=== PATIENT | female | born 1970 | race African-American/Black ===

== ENCOUNTER 2016-07-22 12:29 | Emergency (ER) | payer MEDICARE, OTHER ==
[~2016-07-22] VITALS: Ht 160 cm; Wt 113.6 kg
[~2016-07-22 12:29] MED LIST: ACET250T3 PO; BETH25TA PO; BUME1TAB PO; LEVEMIR SQ; LISI-360 PO; OMEP20TA39 PO; REME30TA PO; ULTR50TA PO
[2016-07-22 12:31] VITALS: BP 159/104; PULSE 106; RESP 17; TEMP 97.9; O2SAT 100
--- NOTE | 2016-07-22 15:51 | PD ---
HPI Chief Complaint: Pain: Acute or Chronic Time Seen by Provider: 15:51 Travel History International Travel<30 days: No Contact w/Intl Traveler<30days: No Traveled to known affect area: No History of Present Illness HPI 46-year-old female with PMH of DM T2, CIDP (chronic inflammatory demyelination polyneuropathy) presents to the ED for evaluation of 2 day history of right groin pain. Onset approximately 12 hours after losing her balance, tripping, catching herself with her right leg. She did not fall to the ground, hit her head or lose consciousness. She endorses minimal pain at rest, 10/10 with hip/ knee flexion of the leg. She endorses a "feeling like my leg is asleep" and states that the left side of her vulva and left foot feels cold. She denies weakness, limitations to mobility or loss of strength of the right extremity. Denies fever, chills, abdominal pain, dysuria, back pain, saddle anesthesia or incontinence. Last brain MRI was "at the end of 2014." Followed by Dr. Singh, neurology. [facility] Past Medical History Anemia: Yes Arthritis: Yes Depression: Yes Heart Rhythm Problems: No Cardiac Catheterization: No Cardiovascular Problems: No High Cholesterol: No Chest Pain: Yes Congestive Heart Failure: No Diabetes: Yes Diminished Hearing: No GERD: Yes Headaches: Yes Hypertension: No Neurologic: Yes (INCREASED ICP, CIDP-2012) Myocardial Infarction: No Ulcer: Yes ?: Not : 4 Para: 4 Tubal Ligation: Yes Past Surgical History Section: Yes (X 4) Coronary Artery Bypass Graft: No Genitourinary Surgery: Yes (URINARY DIVERTICULUM) Gynecologic Surgery: Yes ( X 4, FIBROIDS REMOVED, UTERINE ABLATION) Social History Alcohol Use: Yes (OCCASSIONAL) Tobacco Use: No Substance Use: No Allergies-Medications (Allergen,Severity, Reaction): Coded Allergies: No Known Allergies (Verified , 07/22/16) Reported Meds & Prescriptions Reported Meds & Active Scripts Active Ala-Tk Topical (Hydrocortisone (Topical)) 1% Cream 1 Applic TOPICAL TID 14 Days Tylenol (Acetaminophen) 325 Mg Tab 325 Mg PO TID Reported Metformin (Metformin HCl) 1,000 Mg Tab 1,000 Mg PO BIDPC With meals Levemir Inj (Insulin Detemir) 1,000 unit/ 10 ML Vial 54 Units SQ HS Do not mix with any other Insulin. Lisinopril 10 Mg Tab 10 Mg PO DAILY Ultram (Tramadol HCl) 50 Mg Tab 50 Mg PO Q6H PRN Review of Systems Except as stated in HPI: all other systems reviewed are Neg Physical Exam Narrative GENERAL: Well-nourished, well-developed pleasant black female in no acute distress. SKIN: Warm and dry. No bruising, edema of the right groin. HEAD: Normocephalic. EYES: No scleral icterus. No injection or drainage. NECK: Supple, trachea midline. No JVD or lymphadenopathy. CARDIOVASCULAR: Regular rate and rhythm without murmurs, gallops, or rubs. 2+ DP and radial pulses bilaterally. RESPIRATORY: Breath sounds clear and equal bilaterally. No accessory muscle use. GASTROINTESTINAL: Abdomen soft, non-tender, nondistended. Active bowel sounds. MUSCULOSKELETAL: No cyanosis, or edema. Tender to palpation in the right groin. No tenderness to palpation of the lateral aspect of the hip. The patient retains full, active range of motion of bilateral lower extremities. Flexion of the right hip and knee elicits pain in the groin. No pain elicited with abduction or abduction of the hip. 5/5 plantar flexion, dorsiflexion, knee flexion and hip flexion bilaterally. Homans sign negative bilaterally. Feet are warm and well perfused bilaterally. Lower leg reflexes absent, pt states this is chronic. Sensation intact to touch distally. Cap refill less than 2 seconds. BACK: Nontender without obvious deformity. No midline tenderness. No CVA tenderness. Data Data Last Documented VS Vital Signs Date Time Temp Pulse Resp B/P Pulse Ox O2 Delivery O2 Flow Rate FiO2 07/22/16 18:04 80 20 118/65 99 07/22/16 12:31 97.9 Orders Hip, Uni(Ap&Lat) W Ap Pelvis (07/22/16 16:04) Us Leg Venous Doppler (07/22/16 16:04) Complete Blood Count With Diff (07/22/16 16:06) Comprehensive Metabolic Panel (07/22/16 16:06) Urinalysis - C+S If Indicated (07/22/16 16:06) Iv Access Insert/Monitor (07/22/16 16:06) Morphine Inj (Morphine Inj) (07/22/16 16:15) Sodium Chlor 0.9% 1000 Ml Inj (Ns 1000 M (07/22/16 16:06) Act Partial Throm Time (Ptt) (07/22/16 16:23) Prothrombin Time / Inr (Pt) (07/22/16 16:23) Urine Culture (07/22/16 18:01) Labs Laboratory Tests Test 07/22/16 07/22/16 07/22/16 16:12 16:20 18:01 White Blood Count 13.2 TH/MM3 Red Blood Count 5.04 MIL/MM3 Hemoglobin 13.7 GM/DL Hematocrit 41.6 % Mean Corpuscular Volume 82.5 FL Mean Corpuscular Hemoglobin 27.1 PG Mean Corpuscular Hemoglobin 32.9 % Concent Red Cell Distribution Width 16.5 % Platelet Count 335 TH/MM3 Mean Platelet Volume 9.4 FL Neutrophils (%) (Auto) 47.5 % Lymphocytes (%) (Auto) 45.0 % Monocytes (%) (Auto) 5.0 % Eosinophils (%) (Auto) 1.1 % Basophils (%) (Auto) 1.4 % Neutrophils # (Auto) 6.3 TH/MM3 Lymphocytes # (Auto) 5.9 TH/MM3 Monocytes # (Auto) 0.7 TH/MM3 Eosinophils # (Auto) 0.1 TH/MM3 Basophils # (Auto) 0.2 TH/MM3 CBC Comment AUTO DIFF Differential Total Cells 100 Counted Neutrophils % (Manual) 43 % Lymphocytes % 54 % Monocytes % 3 % Neutrophils # (Manual) 5.7 TH/MM3 Nucleated Red Blood Cells 1 /100 WBC Differential Comment FINAL DIFF MANUAL Platelet Estimate NORMAL Platelet Morphology Comment NORMAL Red Cell Morphology Comment NORMAL Sodium Level 137 MEQ/L Potassium Level 4.0 MEQ/L Chloride Level 106 MEQ/L Carbon Dioxide Level 23.0 MEQ/L Anion Gap 8 MEQ/L Blood Urea Nitrogen 17 MG/DL Creatinine 1.05 MG/DL Estimat Glomerular Filtration 69 ML/MIN Rate Random Glucose 231 MG/DL Calcium Level 8.9 MG/DL Total Bilirubin 0.2 MG/DL Aspartate Amino Transf 9 U/L (AST/SGOT) Alanine Aminotransferase 20 U/L (ALT/SGPT) Alkaline Phosphatase 91 U/L Total Protein 9.2 GM/DL Albumin 3.6 GM/DL Prothrombin Time 9.8 SEC Prothromb Time International 0.9 RATIO Ratio Activated Partial 26.3 SEC Thromboplast Time Urine Color LIGHT-YELLOW Urine Turbidity HAZY Urine pH 5.5 Urine Specific [place] 1.028 Urine Protein NEG mg/dL Urine Glucose (UA) 1000 mg/dL Urine Ketones NEG mg/dL Urine Occult Blood NEG Urine Nitrite NEG Urine Bilirubin NEG Urine Urobilinogen LESS THAN 2.0 MG/DL Urine Leukocyte Esterase MOD Urine WBC 24 /hpf Urine Squamous Epithelial 3 /hpf Cells Urine Bacteria MOD /hpf Microscopic Urinalysis Comment CULTURE INDICATED MDM Medical Decision Making Medical Screen Exam Complete: Yes Emergency Medical Condition: Yes Differential Diagnosis Muscle strain versus fracture versus dislocation versus DVT versus neuropathy versus radiculopathy versus other Narrative Course 46-year-old female with PMH of DM T2, CIDP (chronic inflammatory demyelination polyneuropathy) presents to the ED for evaluation of 2 day history of right groin pain. Onset approximately 12 hours after losing her balance, tripping, catching herself with her right leg. She endorses minimal pain at rest, 10/10 with hip/ knee flexion of the leg. She endorses a "feeling like my leg is asleep" and states that the left side of her vulva and left foot feels cold. She denies weakness, limitations to mobility or loss of strength of the right extremity. Denies fever, chills, abdominal pain, dysuria, back pain, saddle anesthesia or incontinence. Last brain MRI was "at the end of 2014." Followed by Dr. Singh, neurology. Vitals reviewed. Patient is initially tachycardic but this resolves in the exam room. She is observed to walk with a normal gait. Absent reflexes in the lower extremities but this is chronic according to the patient. No focal neural deficits. Flexion and extension of the right knee and hip elicits pain. No pain with abduction or abduction. IV was established. Labs were drawn. Patient was administered 2 mg morphine. CBC: CBC 13.2. Hemoglobin 13.7. INR 0.9. CMP: Creatinine 1.05. BUN 17. Glucose 231. UA: Hazy, moderate leukocyte esterase, 24 WBCs, moderate bacteria. Culture pending. Right hip x-ray: No acute disease Ultrasound of right lower extremity: No DVT I discussed the patient, workup and plan of care with Dr. Maxwell who agrees. I feel this is muscle strain, since is easily reproducible with flexion at the hip. Could be a flare of her rheumatological disease but no red flag symptoms at this time. I advised the patient to limit heavy physical activity, prescribed Tylenol for pain, instructed the patient to follow up with Dr. Singh. We discussed reasons to return to the ED. She indicated understanding of the instructions. She is very happy to be going home. She is stable and discharged. Upon review of this patient's lab results she is found to have a urinary tract infection. I instructed the charge nurse to call the patient at home with prescription of Bactrim DS, twice a day 5 days. Diagnosis Primary Impression: Strain of muscle of right groin region Additional Impressions: Skin rash Urinary tract infection Qualified Code: N39.0 - Urinary tract infection without hematuria, site unspecified Referrals: Primary Care Physician Patient Instructions: General Instructions, Groin Strain (ED) Additional Instructions: Rest, hydrate. Rest, ice, elevation of the extremity may help to reduce pain and swelling. Return to normal, gentle activity as tolerated. No heavy lifting, strenuous exercise, running or jumping until cleared by your primary care provider. Follow-up with the primary care provider this week. Return to the ED for any urgent or emergent medical condition. Med/Other Pt SpecificInfo: Prescription(s) given Scripts Hydrocortisone (Topical) (Ala-Tk Topical)1% Cream1 Applic TOPICAL TID 14 Days Ref 0 Prov:Caren Maxwell MD 07/22/16 Acetaminophen (Tylenol)325 Mg [id number] Mg PO TID #15 TAB Ref 0 Prov:Caren Maxwell MD 07/22/16 Disposition: 01 DISCHARGE HOME Condition: Stable [place] Jul 22, 2016 15:51
[2016-07-22] MEDS ORDERED: LISI10TA3 PO (15:56)
[2016-07-22] MEDS ORDERED: METF1000 PO (15:56)
[2016-07-22] MEDS ORDERED: LEVEMIR SQ (15:56)
[2016-07-22] MEDS ORDERED: ULTR50TA5 PO (15:56)
[2016-07-22 16:00] VITALS: BP 152/94; PULSE 87; RESP 20; O2SAT 99
[2016-07-22] MEDS ORDERED: SODIUM CHLOR 0.9% 1000 ML INJ 1,000 ML IV SCH (16:06)
[2016-07-22] MEDS ORDERED: MORPHINE SULFATE 4 MG/ML INJ IV PUSH ONE (16:15)
--- NOTE | 2016-07-22 16:41 | RADRPT ---
EXAM DATE/TIME: 07/22/2016 16:23 [facility] COMPARISON: No previous studies available for comparison. INDICATIONS : Pain from hyperextension. MEDICAL HISTORY : None. SURGICAL HISTORY : None. ENCOUNTER: Initial ACUITY: 2 days PAIN SCORE: 10/10 LOCATION: Right groin. FINDINGS: Examination of the right hip was performed with AP Pelvis. The primary and secondary trabecular meka paolo of the femoral neck is intact. The hip joint is of normal width without significant sclerosis or bony hypertrophy. The acetabulum is grossly intact. CONCLUSION: No acute disease. Luis Carlos Novak MD on July 22, 2016 at 16:39 Board Certified Radiologist. This report was verified electronically.
[2016-07-22 16:43] LABS: AUTOMATED NEUTROPHIL # 6.3 TH/MM3 (1.8-7.7); BASOPHIL # 0.2 TH/MM3 (0-0.2); BASOPHIL % 1.4 % (0.0-2.0); EOSINOPHIL # 0.1 TH/MM3 (0-0.4); EOSINOPHIL % 1.1 % (0.0-4.0); HEMATOCRIT 41.6 % (35.0-46.0); LYMPHOCYTE # 5.9 TH/MM3 (1.0-4.8); MEAN CELL VOLUME 82.5 FL (80.0-100.0); MEAN CORPUSCULAR HEMOGLOBIN 27.1 PG (27.0-34.0); MEAN CORPUSCULAR HGB CONC 32.9 % (32.0-36.0); NEUT % 47.5 % (16.0-70.0); PLATELET COUNT 335 TH/MM3 (150-450); RED BLOOD COUNT 5.04 MIL/MM3 (4.00-5.30); RED CELL DISTRIBUTION WIDTH 16.5 % (11.6-17.2); WHITE BLOOD COUNT 13.2 TH/MM3 (4.0-11.0)
[2016-07-22 16:45] LABS: HEMO FLAGS AUTO DIFF
[2016-07-22 16:46] LABS: ANION GAP 8 MEQ/L (5-15); AST (GOT) 9 U/L (15-37); BLOOD UREA NITROGEN 17 MG/DL (7-18); CHLORIDE 106 MEQ/L (98-107); GLOMERULAR FILTRATION RATE 69 ML/MIN (>89); SODIUM (NA) 137 MEQ/L (136-145)
[2016-07-22 16:49] LABS: ALKALINE PHOSPHATASE 91 U/L (45-117); ALT (GPT) 20 U/L (10-53); TOTAL BILIRUBIN ADULT 0.2 MG/DL (0.2-1.0)
[2016-07-22 17:02] LABS: APTT (PATIENT) 26.3 SEC (24.3-30.1); INTERNATIONAL NORMALIZED RATIO 0.9 RATIO; PROTHROMBIN TIME - PATIENT 9.8 SEC (9.8-11.6)
--- NOTE | 2016-07-22 17:19 | RADRPT ---
EXAM DATE/TIME: 07/22/2016 16:49 [facility] COMPARISON: No previous studies available for comparison. INDICATIONS : Right groin pain. MEDICAL HISTORY : Gastroesophageal reflux disease. . Increased intracranial pressure . Ulcer. Arthritis. Diabetes. Anemia. Urinary diverticulum. SURGICAL HISTORY : Tubal ligation. section. Fibroid removal. Uterine ablation. ENCOUNTER: Initial ACUITY: 2 day PAIN SCORE: 6/10 LOCATION: Right leg. TECHNIQUE: Venous ultrasound of the leg was performed from the inguinal ligament to the proximal calf. Real-time, color Doppler and spectral tracing, compression and augmentation techniques were us ed. FINDINGS: There is normal compressibility of the deep venous system from the inguinal region to the proximal ca lf. No echogenic clot is seen in the lumen of the common femoral, femoral, popliteal, and posterior tibial veins. There is a normal response of the venous system to proximal and distal augmentation an d respiration. CONCLUSION: Negative for DVT Maxime Saldivar MD FACR on July 22, 2016 at 17:17 Board Certified Radiologist. This report was verified electronically.
[2016-07-22 18:04] VITALS: BP 118/65; PULSE 80; RESP 20; O2SAT 99
[2016-07-22 18:25] LABS: CORRECTED NUCLEATED RBC 1 /100 WBC (0-0); NEUTROPHIL # MANUAL DIFF 5.7 TH/MM3 (1.8-7.7); POLYS (SEG NEUTROPHILS) 43 % (16-70); WBC DIFF SAMPLE 100
[2016-07-22] MEDS ORDERED: TYLE325T PO (18:26)
[2016-07-22] MEDS ORDERED: ALA1CRE2 TOPICAL (18:26)
[2016-07-22 18:32] LABS: PLATELET ESTIMATE SMEAR NORMAL (NORMAL); PLATELET MORPHOLOGY NORMAL (NORMAL); SCAN/DIFF FINAL DIFF MANUAL
[2016-07-22 18:37] LABS: BACTERIA, URINE MOD /hpf; BLOOD, URINE NEG (NEG); COMMENT (UR) CULTURE INDICATED; CULTURE IF INDICATED CULTURE INDICATED; GLUCOSE,URINE 1000 mg/dL (NEG); KETONE, URINE NEG (NEG); NITRITE,URINE NEG (NEG); PH, URINE 5.5 (5.0-8.5); SQUAMOUS EPITHELIAL CELL URINE 3 /hpf (0-5); URINE COLOR LIGHT-YELLOW (YELLW/STRAW)
[2016-12-05] MEDS ORDERED: ACETA500 PO (14:15)
[2016-12-05] MEDS ORDERED: BUME1TAB PO (14:15)
[2016-12-05] MEDS ORDERED: AMIT50TA3 PO (14:15)
[2016-12-05] MEDS ORDERED: LEVEMIR SQ (14:15)
[2016-12-05] MEDS ORDERED: PRAZ1CAP PO (14:15)
[2016-12-05] MEDS ORDERED: PROZ40CA PO (14:15)
== END 2016-07-22 18:40 | disposition home or self-care (01) ==
LOC: NETRI 12:29
DX: N39.0 Urinary tract infection, site not specified (principal); G61.81 Chronic inflammatory demyelinating polyneuritis; D64.9 Anemia, unspecified; E11.9 Type 2 diabetes mellitus without complications; K21.9 Gastro-esophageal reflux disease without esophagitis; R21 Rash and other nonspecific skin eruption; S39.011A Strain of muscle, fascia and tendon of abdomen, initial encounter; B96.20 Unspecified Escherichia coli [E. coli] as the cause of diseases classified elsewhere; M25.551 Pain in right hip; R20.0 Anesthesia of skin; R29.2 Abnormal reflex
CPT/HCPCS: 73502; 80053; 81001; 85007; 85027; 85610; 85730; 87077; 87086; 87186; 93971; 96374; 99284; J2270; J7030

== ENCOUNTER → 2016-12-05 | Outpatient (CLI) | payer MEDICARE, OTHER ==
[~2016-12-05] MED LIST changes: -ACET250T3 PO; +ACETA500 PO; +ALA1CRE2 TOPICAL; +AMIT50TA3 PO; -BETH25TA PO; -LISI-360 PO; +LISI10TA3 PO; +METF1000 PO; -OMEP20TA39 PO; +PRAZ1CAP PO; +PROZ40CA PO; -REME30TA PO; +TYLE325T PO; -ULTR50TA PO; +ULTR50TA5 PO
[2016-12-05 13:59] LABS: AUTOMATED NEUTROPHIL # 7.7 TH/MM3 (1.8-7.7); BASOPHIL # 0.1 TH/MM3 (0-0.2); BASOPHIL % 0.5 % (0.0-2.0); EOSINOPHIL # 0.2 TH/MM3 (0-0.4); EOSINOPHIL % 1.1 % (0.0-4.0); HEMATOCRIT 35.4 % (35.0-46.0); HEMO FLAGS DIFF FINAL; LYMPHOCYTE # 5.1 TH/MM3 (1.0-4.8); MEAN CELL VOLUME 85.4 FL (80.0-100.0); MEAN CORPUSCULAR HEMOGLOBIN 26.8 PG (27.0-34.0); MEAN CORPUSCULAR HGB CONC 31.4 % (32.0-36.0); MONO % 5.3 % (0.0-8.0); NEUT % 56.1 % (16.0-70.0); PLATELET COUNT 315 TH/MM3 (150-450); RED BLOOD COUNT 4.15 MIL/MM3 (4.00-5.30); RED CELL DISTRIBUTION WIDTH 16.7 % (11.6-17.2); WHITE BLOOD COUNT 13.8 TH/MM3 (4.0-11.0)
[2016-12-05 14:07] LABS: BACTERIA, URINE MOD /hpf; BLOOD, URINE TRACE (NEG); COMMENT (UR) CULTURE INDICATED; GLUCOSE,URINE NEG (NEG); KETONE, URINE NEG (NEG); MUCUS URINE FEW /lpf (OCC); NITRITE,URINE NEG (NEG); PH, URINE 5.5 (5.0-8.5); SQUAMOUS EPITHELIAL CELL URINE 28 /hpf (0-5); URINE COLOR YELLOW (YELLW/STRAW)
[2016-12-05 14:08] LABS: CULTURE IF INDICATED CULTURE INDICATED
--- NOTE | 2016-12-05 14:25 | RADRPT ---
EXAM DATE/TIME: 12/05/2016 14:04 [facility] COMPARISON: No previous studies available for comparison. INDICATIONS : Evaluate for pneumonia, pneumothorax or communicable disease. Pre op for partial hysterectomy 12-07-16. MEDICAL HISTORY : None. SURGICAL HISTORY : None. ENCOUNTER: Initial ACUITY: 1 day PAIN SCORE: 0/10 LOCATION: Bilateral chest FINDINGS: PA and lateral views of the chest demonstrate the lungs to be symmetrically aerated without evidence of mass, infiltrate or effusion. The cardiomediastinal contours are unremarkable. Osseous structure s are intact. CONCLUSION: No acute disease. Maxime Saldivar MD FACR on December 05, 2016 at 14:23 Board Certified Radiologist. This report was verified electronically.
[2016-12-05 14:34] LABS: ANION GAP 7 MEQ/L (5-15); BICARBONATE 25.3 MEQ/L (21.0-32.0); BLOOD UREA NITROGEN 14 MG/DL (7-18); CHLORIDE 108 MEQ/L (98-107); GLOMERULAR FILTRATION RATE 98 ML/MIN (>89); POTASSIUM 4.2 MEQ/L (3.5-5.1); SODIUM (NA) 140 MEQ/L (136-145)
[2016-12-05 14:38] LABS: BETA HCG QUANT LESS THAN 1 MIU/ML (0-5)
== END ==
LOC: CPRE 13:00
PROVIDERS: ATTEND Obstetrics & Gynecology
DX: Z01.812 Encounter for preprocedural laboratory examination (principal); Z01.811 Encounter for preprocedural respiratory examination; D25.9 Leiomyoma of uterus, unspecified; N92.0 Excessive and frequent menstruation with regular cycle; N94.6 Dysmenorrhea, unspecified
CPT/HCPCS: 36415; 71020; 80051; 81001; 82565; 82947; 84520; 84702; 85025; 86850; 86900; 86901; 87086

== ENCOUNTER 2016-12-07 10:09 | Observation (INO) | payer MEDICARE, OTHER ==
[~2016-12-07] VITALS: Ht 160 cm; Wt 120.0 kg
--- NOTE | 2016-12-07 08:14 | MH ---
cc: TONA WILLS. DATE OF ADMISSION: 12/07/2016 ADMISSION DIAGNOSIS Menorrhagia, dysmenorrhea with fibroids. HISTORY OF PRESENT ILLNESS The patient 46-year-old single black female para 4-0-0-4 with a three day history of increased menstrual flow and menstrual pain. Her Pap smear from January is normal. Her vaginal ultrasound from 09/19/2016 showed uterine fibroids. Ovaries appeared normal. She is now admitted for surgical evaluation. PAST MEDICAL HISTORY 1. Previous surgery 1988 she had myomectomy 2. urinary diverticula 3. Colonoscopy, endoscopy. 4. She had four sections last with a tubal. ILLNESSES She had adult onset diabetes was early 20s MEDICATIONS Include 1. Insulin. 2. Trulicity. 3. Prozac. 4. Diamox. 5. Bumetanide. SOCIAL HISTORY: She works with a [employer]. Single. Alcohol occasional tobacco none. Drugs none. FAMILY HISTORY: Noncontributory. PHYSICAL EXAMINATION: IN GENERAL: This is an obese black female in no distress. HEAD, EYES, EARS, NOSE, AND THROAT: exam is normal. CHEST: Chest is clear. HEART: The heart, regular rate. BREASTS: The breasts are symmetrical. ABDOMEN: The abdomen is benign. PELVIC: The pelvic examination normal external genitalia and Bartholin's, urethral, and [place]'s, os is normal, cervix normal uterus is about 14-16 weeks in size, Adnexa nonpalpable. ASSESSMENT: As above. PLAN: She is now admitted for D&C frozen section and possible laparoscopy, possible LASH procedure, possible ANT with ovarian sparing if normal. She has been cleared by her gynecology Dr. Ortiz for surgery. She is aware the risks, benefits and complications and agrees to proceed. MD ADONIS Salas/ruby /5:14 PM /8:10 AM KT
[~2016-12-07 10:09] MED LIST changes: -ALA1CRE2 TOPICAL; +BUPIVACAINE LIPOSOME PF 1.3% 20 ML VIAL ONE; -LISI10TA3 PO; -ULTR50TA5 PO
[2016-12-07] MEDS ORDERED: POVIDONE IODINE 5% (ANTISEPSIS KIT) 4 APPLICATIONS EACH NARE PRN (10:45)
[2016-12-07] MEDS ORDERED: ACETAMINOPHEN 1000 MG/100 ML VIAL IV SCH (10:45)
[2016-12-07] MEDS ORDERED: METOPROLOL TARTRATE 25 MG TAB PO PRN (10:45)
[2016-12-07] MEDS ORDERED: LACTATED RINGER'S 1000 ML IV PRN (10:45)
[2016-12-07] MEDS ORDERED: INSULIN HUMAN REGULAR 1,000 UNITS/10 ML VIAL SQ PRN (10:45)
[2016-12-07] MEDS ORDERED: CHLORHEXIDINE GLUCONATE 2 % 1 PACK (2 CLOTHS) TOPICAL PRN (10:45)
[2016-12-07] MEDS ORDERED: ceFAZolin 2 GM PREMIX 50 ML IV SCH (10:45)
[2016-12-07] MEDS ORDERED: SODIUM CHLORID 0.9% 500 ML IV PRN (10:45)
[2016-12-07 11:00] VITALS: BP 132/93; PULSE 98; RESP 20; TEMP 99.1; O2SAT 100
[2016-12-07] MEDS ORDERED: PROPOFOL 200 MG/20 ML AMP IV ONE (12:00)
[2016-12-07] MEDS ORDERED: KETOROLAC TROMETHAMINE 60 MG/2 ML (IM) VIAL IM ONE (12:00)
[2016-12-07] MEDS ORDERED: NEOSTIGMINE 3 MG/3 ML SYR IV ONE (12:00)
[2016-12-07] MEDS ORDERED: ePHEDrine/NS 25 MG/5 ML SYR IV ONE (12:00)
[2016-12-07] MEDS ORDERED: ONDANSETRON HCL 4 MG/2 ML VIAL IV PUSH ONE (12:00)
[2016-12-07] MEDS ORDERED: LACTATED RINGER'S 1000 ML INJ 1,000 ML IV ONE (12:00)
[2016-12-07] MEDS ORDERED: MIDAZOLAM HCL 2 MG/2 ML VIAL ONE (12:42)
[2016-12-07] MEDS ORDERED: FAMOTIDINE 20 MG/2 ML VIAL ONE (12:42)
[2016-12-07] MEDS ORDERED: diphenhydrAMINE HCL 25 MG CAP PO PRN (15:30)
[2016-12-07] MEDS ORDERED: SODIUM CHLORIDE 0.9% FLUSH 5 ML FLUSH FLUSH PRN (15:30)
[2016-12-07] MEDS ORDERED: ZOLPIDEM TARTRATE 5 MG TAB PO PRN (15:30)
[2016-12-07] MEDS ORDERED: HYDROmorphone HCL PF 1 MG/ML VIAL IV PRN (15:30)
[2016-12-07] MEDS ORDERED: PROMETHAZINE HCL 25 MG TAB PO PRN (15:30)
[2016-12-07] MEDS ORDERED: ONDANSETRON ODT 4 MG TAB PO PRN (15:30)
[2016-12-07] MEDS ORDERED: hydrOXYzine PAMOATE 25 MG CAP PO PRN (15:30)
[2016-12-07] MEDS ORDERED: ONDANSETRON HCL 4 MG/2 ML VIAL IV PRN (15:30)
[2016-12-07] MEDS ORDERED: DO NOT ADM ANY ANTICOAGULANT DRUGS PRN (16:07)
[2016-12-07] MEDS ORDERED: fentaNYL CITRATE 250 MCG/5 ML AMP ONE (16:18)
[2016-12-07] MEDS ORDERED: *ONDANSETRON 4 MG VIAL PERIprocedural Use ONLY ONE (16:40)
[2016-12-07] MEDS: LACTATED RINGER'S 1000 ML INJ 1,000 ML IV SCH (16:43)
--- NOTE | 2016-12-07 17:05 | PD.CONS ---
HPI Service [facility] Hospitalists Consult Requested By Dr. Palmer Reason for Consult Med management Primary Care Physician Brad Lawler MD Diagnoses: History of Present Illness Written by Dmitri Charles, acting as scribe for Dr. De Los Santos on 12/07/16 at 17:05. 46-year-old female with a past medical history of fibroids, DM, depression, pseudotumor cerebri. The patient was admitted for surgical management of menorrhagia and fibroid with Dr. Palmer. Hospitalist service was consulted for medical management. The patient is seen postoperatively. She has had some postoperative nausea and vomiting. She feels constipated this time. She states normally she usually takes Levemir 35 units every night on a sliding scale. She reports poor appetite at this time. She denies any recent illness, cough, fever, chills, dysuria.n She denies any additional complaints at this time. Review of Systems Except as stated in HPI: all other systems reviewed are Neg Past Family Social History Allergies: Coded Allergies: No Known Allergies (Verified , 12/07/16) Past Medical History Diabetes mellitus Uterine fibroids Depression Pseudotumor cerebri Denies history of hypertension Past Surgical History Urinary diverticular. Myomectomy EGD/colonoscopy 4 with a tubal ligation Uterine ablation Reported Medications Prazosin (Prazosin HCl) 1 Mg Cap 1 Mg PO HS Prozac (Fluoxetine HCl) 40 Mg Cap 40 Mg PO DAILY Levemir Inj (Insulin Detemir) 1,000 unit/ 10 ML Vial 40 Units SQ HS Do not mix with any other Insulin. Amitriptyline (Amitriptyline HCl) 50 Mg Tab 50 Mg PO HS Bumetanide 1 Mg Tab 1 Mg PO TID Diamox Sequels ER 12 HR (Acetazolamide) 500 Mg Cap 500 Mg PO DAILY Metformin (Metformin HCl) 1,000 Mg Tab 1,000 Mg PO BIDPC With meals Active Ordered Medications Current Medications Medications (Trade) Dose Ordered Sig/Ashish Route Start Time Stop Time Status Last Admin Lactated Ringer's 1,000 ml @ 30 mls/hr Q24H PRN IV 12/07/16 10:45 12/10/16 10:44 12/07/16 11:20 Sodium Chloride 500 ml @ 30 mls/hr [id number] PRN IV 12/07/16 10:45 12/10/16 10:44 (Lr 1000 ml Inj) 1,000 ml @ 125 mls/hr Q8H IV 12/07/16 15:23 12/07/16 16:43 (NS Flush) 2 ml UNSCH PRN FLUSH 12/07/16 15:30 (NS Flush) 2 ml BID FLUSH 12/07/16 21:00 (Toradol Inj) 30 mg Q6HR IVP 12/07/16 18:00 12/12/16 17:59 (Dilaudid Pf Inj) 1 mg Q4H PRN IV 12/07/16 15:30 (Benadryl) 25 mg Q6H PRN PO 12/07/16 15:30 (Zofran Odt) 4 mg Q6H PRN PO 12/07/16 15:30 (Zofran Inj) 8 mg Q8H PRN IV 12/07/16 15:30 (Phenergan) 25 mg Q6H PRN PO 12/07/16 15:30 (Colace) 100 mg Q12HR PO 12/07/16 21:00 (Ambien) 5 mg HS PRN PO 12/07/16 15:30 (Ofirmev Inj) 1,000 mg Q8H IV 12/07/16 20:00 (Roxicodone) 5 mg Q4H PRN PO 12/07/16 15:30 (Vistaril) 25 mg Q6H PRN PO 12/07/16 15:30 12/08/16 15:30 (Diamox Sequels) 500 mg DAILY PO 12/08/16 09:00 (Elavil) 50 mg HS PO 12/07/16 21:00 (Bumetanide) 1 mg TID PO 12/07/16 18:00 (Glucophage) 1,000 mg BIDPC PO 12/07/16 18:00 (Minipress) 1 mg HS PO 12/07/16 21:00 (PROzac) 40 mg DAILY PO 12/08/16 09:00 (Levemir Inj) 15 units HS SQ 12/07/16 21:00 (D50w (Vial) Inj) 50 ml UNSCH PRN IV 12/07/16 17:15 (Glucagon Inj) 1 mg UNSCH PRN OTHER 12/07/16 17:15 Miscellaneous Information ALL NURSING DEPARTME... [facility] PRN .XX 12/07/16 16:07 12/08/16 16:06 Family History Father of alcoholic cirrhosis Mother of cancer, primary unknown Social History Occasional alcohol use, denies daily use Denies any tobacco or drug use Physical Exam Vital Signs Vital Signs Date Time Temp Pulse Resp B/P Pulse Ox O2 Delivery O2 Flow Rate FiO2 12/07/16 11:00 99.1 98 20 132/93 100 Physical Exam GENERAL: Well-developed well-nourished. Morbid obese. In no acute distress. SKIN: Warm and dry. No lesions noted. HEENT: Normocephalic. Pupils equal and round. Mucous membranes pink and moist. CARDIOVASCULAR: Regular rate and rhythm. No murmur appreciated. RESPIRATORY: No accessory muscle use. Clear to auscultation. Breath sounds equal bilaterally. GASTROINTESTINAL: Abdomen soft, non-tender, nondistended. Bowel sounds x4. Postoperative abdomen. MUSCULOSKELETAL: No obvious deformities. No clubbing or cyanosis. No edema. NEUROLOGICAL: Postoperative sleepiness but answers questions appropriately. No focal neurological deficits. Moves upper and lower extremities spontaneously. Normal speech. Assessment and Plan Assessment and Plan 46-year-old female with a past medical history of fibroids, DM, depression, pseudotumor cerebri Menorrhagia with fibroids: Postoperative management including diet, pain control , activity, bowel regimen, DVT prophylaxis, per AUTO B[employer]KE TECHNICIAN, Dr. Palmer. Diabetes mellitus: Decreased intake postsurgically. Decrease Levemir to 15 units for now. Continue metformin. Monitor Accu-Cheks. SSI coverage with hypoglycemia protocol. Pseudotumor cerebri: Chronic, stable. Continue Bumex and acetazolamide. Depression: Chronic, stable. Continue home Elavil and Prozac. This note was transcribed by myrna Charles. I, Dr. Chevy De Los Santos personally performed the history, physical exam, and medical decision making; and confirmed the accuracy of the information in the transcribed note. Authenticated by Dr. Chevy De Los Santos on 12/07/16 at 17:05. Code Status Full code Discussed Condition With Patient, CHILD NUTRITION MANAGERDmitri Viera Dec 07, 2016 17:05 Chevy De Los Santos MD Dec 07, 2016 17:06
[2016-12-07] MEDS ORDERED: DEXTROSE 50% IN WATER 50 ML VIAL(D50) IV PRN (17:15)
[2016-12-07] MEDS ORDERED: GLUCAGON 1 MG/ML VIAL OTHER PRN (17:15)
[2016-12-07 17:48] LABS: HEMATOCRIT 32.1 % (35.0-46.0); REVIEW FLAG FINAL
[2016-12-07 18:00] VITALS: BP 127/61; PULSE 97; RESP 14; TEMP 97.8; O2SAT 95
[2016-12-07] MEDS: metFORMIN HCL 500 MG TAB PO SCH (18:25)
[2016-12-07] MEDS: BUMETANIDE 1 MG TAB PO SCH (18:25)
[2016-12-07] MEDS: KETOROLAC TROMETHAMINE 30 MG/ML (IVP) VIAL IVP SCH (18:26)
[2016-12-07 19:33] VITALS: O2SAT 95
[2016-12-07 20:30] VITALS: BP 132/79; PULSE 94; RESP 18; TEMP 97.8; O2SAT 98
[2016-12-07] MEDS ORDERED: PRAZOSIN HCL 1 MG CAP PO SCH (21:00)
[2016-12-07] MEDS ORDERED: INSULIN DETEMIR 100 UNITS/ML VIAL SQ SCH (21:00)
[2016-12-07] MEDS ORDERED: AMITRIPTYLINE HCL 50 MG TAB PO SCH (21:00)
[2016-12-07] MEDS: SODIUM CHLORIDE 0.9% FLUSH 5 ML FLUSH FLUSH SCH (21:00)
[2016-12-07] MEDS: INSULIN ASPART SUPPLEMENTAL SCALE SQ SCH (21:27)
[2016-12-07] MEDS: DOCUSATE SODIUM 100 MG CAP PO SCH (21:30)
[2016-12-07] MEDS: ACETAMINOPHEN 1000 MG/100 ML VIAL IV SCH (21:31)
[2016-12-08] MEDS: KETOROLAC TROMETHAMINE 30 MG/ML (IVP) VIAL IVP SCH ×3 (00:37→12:44)
[2016-12-08 01:00] VITALS: BP 108/64; PULSE 86; RESP 16; TEMP 97.8; O2SAT 97
[2016-12-08] MEDS: LACTATED RINGER'S 1000 ML INJ 1,000 ML IV SCH (02:30)
[2016-12-08 05:00] VITALS: BP 126/68; PULSE 88; RESP 16; TEMP 97.7; O2SAT 97
[2016-12-08] MEDS: ACETAMINOPHEN 1000 MG/100 ML VIAL IV SCH (05:27)
[2016-12-08] MEDS: INSULIN ASPART SUPPLEMENTAL SCALE SQ SCH ×2 (06:23→13:05)
[2016-12-08 06:47] LABS: AUTOMATED NEUTROPHIL # 8.6 TH/MM3 (1.8-7.7); BASOPHIL # 0.1 TH/MM3 (0-0.2); BASOPHIL % 0.5 % (0.0-2.0); EOSINOPHIL # 0.1 TH/MM3 (0-0.4); EOSINOPHIL % 0.6 % (0.0-4.0); HEMATOCRIT 29.1 % (35.0-46.0); HEMO FLAGS DIFF FINAL; LYMPH % 28.7 % (9.0-44.0); LYMPHOCYTE # 3.8 TH/MM3 (1.0-4.8); MEAN CELL VOLUME 83.9 FL (80.0-100.0); MEAN CORPUSCULAR HEMOGLOBIN 27.3 PG (27.0-34.0); MEAN CORPUSCULAR HGB CONC 32.5 % (32.0-36.0); MONO % 5.4 % (0.0-8.0); NEUT % 64.8 % (16.0-70.0); PLATELET COUNT 264 TH/MM3 (150-450); RED BLOOD COUNT 3.46 MIL/MM3 (4.00-5.30); RED CELL DISTRIBUTION WIDTH 16.2 % (11.6-17.2); WHITE BLOOD COUNT 13.2 TH/MM3 (4.0-11.0)
[2016-12-08 07:31] LABS: BICARBONATE 26.4 MEQ/L (21.0-32.0)
[2016-12-08 07:45] LABS: CALCIUM-PROTEIN CORRECTED 7.8 MG/DL (8.5-10.1)
[2016-12-08 08:00] VITALS: BP 132/77; PULSE 89; RESP 18; TEMP 97.5; O2SAT 99
[2016-12-08] MEDS ORDERED: acetaZOLAMIDE SEQUELS 500 MG SUSTAINED RELEASE CAP PO SCH (09:00)
[2016-12-08] MEDS ORDERED: FLUoxetine HCL 20 MG CAP PO SCH (09:00)
[2016-12-08] MEDS: metFORMIN HCL 500 MG TAB PO SCH (09:32)
[2016-12-08] MEDS: DOCUSATE SODIUM 100 MG CAP PO SCH (09:32)
[2016-12-08] MEDS: BUMETANIDE 1 MG TAB PO SCH ×2 (09:32→13:05)
[2016-12-08] MEDS: SODIUM CHLORIDE 0.9% FLUSH 5 ML FLUSH FLUSH SCH (09:33)
[2016-12-08 10:15] VITALS: O2SAT 98
[2016-12-08 12:00] VITALS: BP 112/59; PULSE 94; RESP 20; TEMP 98.2; O2SAT 98
--- NOTE | 2016-12-08 12:16 | MP ---
cc: TONA WILLS DATE OF SURGERY: 12/07/2016 PREOPERATIVE DIAGNOSIS Menorrhagia, dysmenorrhea and anemia secondary to fibroids. POSTOPERATIVE DIAGNOSIS Menorrhagia, dysmenorrhea and anemia secondary to fibroids. PROCEDURE D&C, laparoscopy, lysis of adhesions, LASH, left salpingo-oophorectomy, and right salpingectomy. ANESTHESIA General endotracheal. SURGEON Tona Wills MD STRATE[employer]IC MARKETING LEADER LINA Seymour ESTIMATED BLOOD LOSS 200 cc. FLUIDS 1.8 liters crystalloid. OBJECTIVE FINDINGS Following the induction of adequate general endotracheal anesthesia the patient was prepped and draped on the operating table in the dorsal lithotomy position in the usual sterile fashion with the bladder being drained via Allison catheterization. Exam revealed about a 14 weeks' size anterior uterus, adnexa nonpalpable. A heavy weighted speculum was placed in the posterior fornix of the vagina. The anterior lip of the cervix was grasped with a single-tooth tenaculum. The cervix sounded to 10 cm. The cervix is then dilated to a #20 Hanks dilator. Endocervical curettings were obtained with a serrated curette, endometrium with a small sharp curette. The cervical tenaculum site was sutured with 2-0 chromic and vaginal instruments removed. The patient was now repositioned supine on the table. The abdomen was opened through a curving 3 cm infraumbilical incision using a knife to cut down through skin to the fascia. The fascia was opened transversely and the peritoneum opened sharply without incident. Digital palpation showed some adhesions inferior to the opening. The GelPort was placed, laparoscope inserted which visualized adhesions adherent to the old midline incision. The uterus was about 14-weeks size with fibroids. It was mobile. The cul-de-sacs were clear. The liver edge was normal. The tubes revealed previous interruption. The right ovary was normal, the left was cystic. A 5 port was placed in the left lower quadrant and AirSeal in the right lower quadrant. A Harmonic scalpel is now used to take down the adhesions anteriorly and when complete it was possible to proceed with hysterectomy. The uterus was held with an atraumatic grasper. The left uteroovarian pedicel is taken with the Harmonic scalpel, the left round ligament, left broad ligament and left side of the bladder flap. The same on the right. The Harmonic scalpel was now used to amputate the fundus from the cervix and it was extracted intact in a pouch through the GelPort site. Both tubes were now extracted with a Harmonic scalpel. The left ovary was cystic and had some persistent bleeding so it was removed with the Harmonic scalpel and extracted intact through the GelPort. Irrigation was now performed. There was no bleeding evident. The ureters had good peristalsis. The operative sites were coated with Evicel. No bleeding was evident. The GelPort was now removed and the fascia and peritoneum were closed with running locking stitch of 0 Vicryl corner to midline and tied. Th subcu was irrigated and closed with 3-0 Vicryl and the skin with running subcuticular 3-0 Monocryl. Dermabond was applied. The scope was now reinserted through the lower ports and used to inspect the GelPort site which was well-closed with no entrapment of viscera. The pelvis was inspected with no bleeding. The scope was removed, gas was allowed to escape, and small wounds closed with 3-0 Monocryl. Dermabond was applied. All counts were correct and the patient was awakened and taken to the recovery room in good position. MD ADONIS Salas/OLAF /3:58 PM /11:47 AM
--- NOTE | 2016-12-08 13:30 | HHI.PR ---
Subjective Remarks Patient seen and examined Denies any significant abdominal pain Tolerated by mouth without any complication or nausea and vomiting Blood glucose stable Objective Vitals Vital Signs Date Time Temp Pulse Resp B/P Pulse Ox O2 Delivery O2 Flow Rate FiO2 12/08/16 12:00 98.2 94 20 112/59 98 12/08/16 09:33 16 12/08/16 08:00 97.5 89 18 132/77 99 12/08/16 05:00 97.7 88 16 126/68 97 12/08/16 01:00 97.8 86 16 108/64 97 12/07/16 20:30 97.8 94 18 132/79 98 12/07/16 19:33 95 Nasal Cannula 2.00 12/07/16 18:00 97.8 97 14 127/61 95 12/07/16 17:30 98.1 91 19 132/71 96 Nasal Cannula 2 12/07/16 17:15 91 17 140/80 96 Nasal Cannula 2 12/07/16 17:00 88 19 136/80 94 Nasal Cannula 2 12/07/16 16:45 81 19 135/81 94 Nasal Cannula 3 12/07/16 16:30 87 16 134/75 95 Nasal Cannula 3 12/07/16 16:15 88 17 131/65 96 Nasal Cannula 3 12/07/16 16:10 98.9 94 17 128/68 92 Nasal Cannula 3 I/O 12/07/16 12/07/16 12/07/16 12/08/16 12/08/16 12/08/16 07:00 15:00 23:00 07:00 15:00 23:00 Intake Total 2585 ml 240 ml Output Total 1150 ml 1050 ml 400 ml Balance 1435 ml -1050 ml -160 ml Intake Oral 240 ml 240 ml IV Total 545 ml Other 1800 ml Output Urine Total 950 ml 1050 ml 400 ml Estimated Blood Loss 200 ml Result Diagram: 12/08/16 0602 12/08/16 0600 Objective Remarks GENERAL: NAD SKIN: Warm and dry. HEAD: Normocephalic. EYES: No scleral icterus. No injection or drainage. NECK: Supple, trachea midline. No JVD or lymphadenopathy. CARDIOVASCULAR: Regular rate and rhythm without murmurs, gallops, or rubs. RESPIRATORY: Breath sounds equal bilaterally. No accessory muscle use. GASTROINTESTINAL: Abdomen soft, non-tender, nondistended. MUSCULOSKELETAL: No cyanosis, or edema. BACK: Nontender without obvious deformity. No CVA tenderness. A/P Assessment and Plan 46-year-old female with a past medical history of fibroids, DM, depression, pseudotumor cerebri Menorrhagia with fibroids: Postoperative management including diet, pain control , activity, bowel regimen, DVT prophylaxis, per [facility] ATTENDANT, Dr. Palmer. Diabetes mellitus: Continue Levemir 15 units for now however will discharge on home regiment. Continue metformin. Monitor Accu-Cheks. SSI coverage with hypoglycemia protocol. Pseudotumor cerebri: Chronic, stable. Continue Bumex and acetazolamide. Depression: Chronic, stable. Continue home Elavil and Prozac. Chevy De Los Santos MD Dec 08, 2016 13:29
[2016-12-08 16:00] VITALS: BP 120/79; PULSE 90; RESP 18; TEMP 96.8; O2SAT 97
== END 2016-12-08 16:30 | disposition home or self-care (01) ==
LOC: HSDC 10:09 → HSDI 15:26 → HOCB 18:11
PROVIDERS: ADMIT Obstetrics & Gynecology; ATTEND Obstetrics & Gynecology
DX: D25.9 Leiomyoma of uterus, unspecified (principal); N80.0 Endometriosis of uterus; N83.12 Corpus luteum cyst of left ovary; N83.8 Other noninflammatory disorders of ovary, fallopian tube and broad ligament; N72 Inflammatory disease of cervix uteri; E11.9 Type 2 diabetes mellitus without complications; D64.9 Anemia, unspecified; G93.2 Benign intracranial hypertension; F32.9 Major depressive disorder, single episode, unspecified; Z79.4 Long term (current) use of insulin
CPT/HCPCS: 58542; 80048; 82948; 84155; 85014; 85018; 85025; 88305; 88307; 88331; 94150; 96372; 96374; 96375; 96376; C9290; G0378; J0131; J0690; J1815; J1885; J2250; J2405; J2710; J3010; J7120

== ENCOUNTER 2017-08-07 08:17 | Emergency (ER) | payer MEDICARE, OTHER ==
[~2017-08-07] VITALS: Ht 160 cm; Wt 120.0 kg
[~2017-08-07 08:17] MED LIST changes: -BUPIVACAINE LIPOSOME PF 1.3% 20 ML VIAL ONE; -TYLE325T PO
[2017-08-07 08:19] VITALS: BP 143/86; PULSE 97; RESP 18; TEMP 98.1; O2SAT 100
[2017-08-07 08:52] VITALS: O2SAT 97
[2017-08-07] MEDS ORDERED: SODIUM CHLOR 0.9% 1000 ML INJ 1,000 ML IV SCH (09:03)
--- NOTE | 2017-08-07 09:10 | PD ---
HPI Chief Complaint: Abdominal Pain Time Seen by Provider: 08:47 Travel History International Travel<30 days: No Contact w/Intl Traveler<30days: No Traveled to known affect area: No History of Present Illness HPI patient c/o one week long, sharp, llq area pain, not improving, nonradiating.....patient states very similar to her fibroid pain that she has had in past.,.....denies any assoc factors such as fever,v/d/cp/backpain/rash at this time all:none pmhx sig for dm, chronic neuropathy, fibroids PFSH Past Medical History Anemia: Yes Arthritis: Yes Depression: Yes Heart Rhythm Problems: No Cancer: No Cardiac Catheterization: No Cardiovascular Problems: No High Cholesterol: No Chest Pain: Yes Congestive Heart Failure: No Diabetes: Yes Diminished Hearing: No Endocrine: Yes GERD: Yes Genitourinary: No Headaches: Yes Hepatitis: No Hiatal Hernia: No Hypertension: No Immune Disorder: No Musculoskeletal: No Neurologic: Yes (INCREASED ICP, 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, NUMBNESS IN HANDS AND FEET) Psychiatric: Yes (BI-POLAR) Reproductive: Yes Respiratory: No Myocardial Infarction: No Thyroid Disease: No Ulcer: Yes ?: Unknown : 4 Para: 4 Tubal Ligation: Yes Past Surgical History AICD: No Body Medical Devices: NONE Section: Yes (X 4) Coronary Artery Bypass Graft: No Genitourinary Surgery: Yes (URINARY DIVERTICULUM) Gynecologic Surgery: Yes ( X 4, FIBROIDS REMOVED, UTERINE ABLATION) Hysterectomy: Yes Joint Replacement: No Pacemaker: No Social History Alcohol Use: Yes Tobacco Use: No Substance Use: No Allergies-Medications (Allergen,Severity, Reaction): Coded Allergies: No Known Allergies (Verified , 12/07/16) Reported Meds & Prescriptions Reported Meds & Active Scripts Active Metformin (Metformin HCl) 1,000 Mg Tab 1,000 Mg PO BIDPC Macrobid (Nitrofurantoin Monohydrate Macrocrystals) 100 Mg Capsule 100 Mg PO BID 7 Days Reported Prazosin (Prazosin HCl) 1 Mg Cap 1 Mg PO HS Prozac (Fluoxetine HCl) 40 Mg Cap 40 Mg PO DAILY Levemir Inj (Insulin Detemir) 1,000 unit/ 10 ML Vial 40 Units SQ HS Do not mix with any other Insulin. Amitriptyline (Amitriptyline HCl) 50 Mg Tab 50 Mg PO HS Bumetanide 1 Mg Tab 1 Mg PO TID Diamox Sequels ER 12 HR (Acetazolamide) 500 Mg Cap 500 Mg PO DAILY Metformin (Metformin HCl) 1,000 Mg Tab 1,000 Mg PO BIDPC With meals Review of Systems General / Constitutional: No: Fever Eyes: No: Visual changes HENT: No: Headaches Cardiovascular: No: Chest Pain or Discomfort Respiratory: No: Shortness of Breath Gastrointestinal: Positive: Nausea, Abdominal Pain Genitourinary: No: Dysuria Musculoskeletal: No: Pain Skin: No Rash Neurologic: No: Weakness Psychiatric: No: Depression Endocrine: No: Polydipsia Hematologic/Lymphatic: No: Easy Bruising Physical Exam Narrative GENERAL: SKIN: Warm and dry. HEAD: Atraumatic. Normocephalic. EYES: Pupils equal and round. No scleral icterus. No injection or drainage. ENT: No nasal bleeding or discharge. Mucous membranes pink and moist. NECK: Trachea midline. No JVD. CARDIOVASCULAR: Regular rate and rhythm. RESPIRATORY: No accessory muscle use. Clear to auscultation. Breath sounds equal bilaterally. GASTROINTESTINAL: Abdomen soft, nondistended. suprapubic to LLQ ttp but without rebound/guarding/rigidity MUSCULOSKELETAL: Extremities without clubbing, cyanosis, or edema. No obvious deformities. NEUROLOGICAL: Awake and alert. No obvious cranial nerve deficits. Motor grossly within normal limits. Five out of 5 muscle strength in the arms and legs. Normal speech. PSYCHIATRIC: Appropriate mood and affect; insight and judgment normal. Data Data Last Documented VS Vital Signs Date Time Temp Pulse Resp B/P (MAP) Pulse Ox O2 Delivery O2 Flow Rate FiO2 08/07/17 13:10 87 17 132/71 (91) 100 08/07/17 12:06 Room Air 08/07/17 08:19 98.1 Orders Orders Complete Blood Count With Diff (08/07/17 09:03) Comprehensive Metabolic Panel (08/07/17 09:03) Lipase (08/07/17 09:03) Urinalysis - C+S If Indicated (08/07/17 09:03) Ct Abd/Pel W/O Iv Contrast (08/07/17 09:03) Iv Access Insert/Monitor (08/07/17 09:03) Ecg Monitoring (08/07/17 09:03) Oximetry (08/07/17 09:03) NPO (08/07/17 09:03) Morphine Inj (Morphine Inj) (08/07/17 09:15) Ondansetron Inj (Zofran Inj) (08/07/17 09:15) Sodium Chlor 0.9% 1000 Ml Inj (Ns 1000 M (08/07/17 09:03) Sodium Chloride 0.9% Flush (Ns Flush) (08/07/17 09:15) Ed Urine Pregnancytest Poc (08/07/17 09:03) Insulin Human Regular Inj (Novolin R Inj (08/07/17 09:15) Insulin Human Regular Inj (Novolin R Inj (08/07/17 09:15) Urine Culture (08/07/17 08:50) Labs Laboratory Tests Test 08/07/17 08:50 White Blood Count 9.8 TH/MM3 Red Blood Count 4.68 MIL/MM3 Hemoglobin 12.6 GM/DL Hematocrit 38.7 % Mean Corpuscular Volume 82.7 FL Mean Corpuscular Hemoglobin 27.0 PG Mean Corpuscular Hemoglobin Concent 32.6 % Red Cell Distribution Width 16.0 % Platelet Count 335 TH/MM3 Mean Platelet Volume 9.6 FL Neutrophils (%) (Auto) 59.7 % Lymphocytes (%) (Auto) 31.3 % Monocytes (%) (Auto) 7.2 % Eosinophils (%) (Auto) 0.9 % Basophils (%) (Auto) 0.9 % Neutrophils # (Auto) 5.8 TH/MM3 Lymphocytes # (Auto) 3.1 TH/MM3 Monocytes # (Auto) 0.7 TH/MM3 Eosinophils # (Auto) 0.1 TH/MM3 Basophils # (Auto) 0.1 TH/MM3 CBC Comment DIFF FINAL Differential Comment Urine Color LIGHT-YELLOW Urine Turbidity HAZY Urine pH 7.0 Urine Specific [place] 1.035 Urine Protein NEG mg/dL Urine Glucose (UA) 1000 mg/dL Urine Ketones TRACE mg/dL Urine Occult Blood NEG Urine Nitrite POS Urine Bilirubin NEG Urine Urobilinogen LESS THAN 2.0 MG/DL Urine Leukocyte Esterase TRACE Urine RBC 1 /hpf Urine WBC 8 /hpf Urine Squamous Epithelial Cells 3 /hpf Urine Bacteria MANY /hpf Urine Mucus FEW /lpf Microscopic Urinalysis Comment CULTURE INDICATED Blood Urea Nitrogen 15 MG/DL Creatinine 0.95 MG/DL Random Glucose 450 MG/DL Total Protein 8.2 GM/DL Albumin 3.1 GM/DL Calcium Level 8.9 MG/DL Alkaline Phosphatase 106 U/L Aspartate Amino Transf (AST/SGOT) 18 U/L Alanine Aminotransferase (ALT/SGPT) 19 U/L Total Bilirubin 0.2 MG/DL Sodium Level 133 MEQ/L Potassium Level 4.1 MEQ/L Chloride Level 101 MEQ/L Carbon Dioxide Level 24.2 MEQ/L Anion Gap 8 MEQ/L Estimat Glomerular Filtration Rate 77 ML/MIN Lipase 162 U/L [facility] Medical Decision Making Medical Screen Exam Complete: Yes Emergency Medical Condition: Yes Medical Record Reviewed: Yes Differential Diagnosis kidney stone v uti v ileus v colitis Narrative Course UA consistent with a UTI. Hyperglycemia 450 which was treated with IV insulin, subcu insulin, and IV fluids. CT is negative for any kidney stone, colitis, diverticulitis at this time. Diagnosis Primary Impression: Urinary tract infection Qualified Codes: N30.00 - Acute cystitis without hematuria Additional Impression: hyperglycemia due to noncompliance Patient Instructions: Diabetic Hyperglycemia (ED), General Instructions, Urinary Tract Infection in Women (DC) Scripts Metformin (Metformin) 1,000 Mg Tab 1000 MG PO BIDPC for Blood Sugar Management, #60 TAB 0 Refills Prov: Aristeo Booker MD 08/07/17 Nitrofurantoin Monohydrate Macrocrystals (Macrobid) 100 Mg Capsule 100 MG PO BID for 7 Days, #14 CAP 0 Refills Prov: Aristeo Booker MD 08/07/17 Disposition: 01 DISCHARGE HOME Condition: Stable Aristeo Booker MD Aug 07, 2017 09:10
[2017-08-07] MEDS ORDERED: MORPHINE SULFATE 4 MG/ML INJ IV PUSH ONE (09:15)
[2017-08-07] MEDS ORDERED: INSULIN HUMAN REGULAR 1,000 UNITS/10 ML VIAL SQ ONE (09:15)
[2017-08-07] MEDS ORDERED: SODIUM CHLORIDE 0.9% FLUSH 10 ML FLUSH IV FLUSH PRN (09:15)
[2017-08-07] MEDS ORDERED: ONDANSETRON HCL 4 MG/2 ML VIAL IVP ONE (09:15)
[2017-08-07] MEDS ORDERED: INSULIN HUMAN REGULAR 1,000 UNITS/10 ML VIAL IV PUSH ONE (09:15)
[2017-08-07 09:24] LABS: AUTOMATED NEUTROPHIL # 5.8 TH/MM3 (1.8-7.7); BASOPHIL # 0.1 TH/MM3 (0-0.2); BASOPHIL % 0.9 % (0.0-2.0); EOSINOPHIL # 0.1 TH/MM3 (0-0.4); EOSINOPHIL % 0.9 % (0.0-4.0); HEMATOCRIT 38.7 % (35.0-46.0); HEMOGLOBIN 12.6 GM/DL (11.6-15.3); LYMPH % 31.3 % (9.0-44.0); LYMPHOCYTE # 3.1 TH/MM3 (1.0-4.8); MEAN CELL VOLUME 82.7 FL (80.0-100.0); MEAN CORPUSCULAR HGB CONC 32.6 % (32.0-36.0); MEAN PLATELET VOLUME 9.6 FL (7.0-11.0); MONO % 7.2 % (0.0-8.0); MONOCYTE # 0.7 TH/MM3 (0-0.9); NEUT % 59.7 % (16.0-70.0); PLATELET COUNT 335 TH/MM3 (150-450); RED BLOOD COUNT 4.68 MIL/MM3 (4.00-5.30); WHITE BLOOD COUNT 9.8 TH/MM3 (4.0-11.0)
[2017-08-07 09:26] LABS: BACTERIA, URINE MANY /hpf; BILIRUBIN, URINE NEG (NEG); BLOOD, URINE NEG (NEG); GLUCOSE,URINE 1000 mg/dL (NEG); KETONE, URINE TRACE mg/dL (NEG); MUCUS URINE FEW /lpf (OCC); NITRITE,URINE POS (NEG); SQUAMOUS EPITHELIAL CELL URINE 3 /hpf (0-5); URINE COLOR LIGHT-YELLOW (YELLW/STRAW); URINE LEUKOCYTE ESTERASE TRACE (NEG)
[2017-08-07 09:30] VITALS: BP 130/81; PULSE 89; RESP 17; O2SAT 95
[2017-08-07 09:47] LABS: ALBUMIN 3.1 GM/DL (3.4-5.0); ALKALINE PHOSPHATASE 106 U/L (45-117); ALT (GPT) 19 U/L (10-53); AST (GOT) 18 U/L (15-37); BICARBONATE 24.2 MEQ/L (21.0-32.0); BLOOD UREA NITROGEN 15 MG/DL (7-18); CALCIUM 8.9 MG/DL (8.5-10.1); CHLORIDE 101 MEQ/L (98-107); CREATININE 0.95 MG/DL (0.50-1.00); GLOMERULAR FILTRATION RATE 77 ML/MIN (>89); SODIUM (NA) 133 MEQ/L (136-145); TOTAL BILIRUBIN ADULT 0.2 MG/DL (0.2-1.0); TOTAL PROTEIN 8.2 GM/DL (6.4-8.2)
[2017-08-07 09:50] LABS: GLUCOSE,RANDOM 450 MG/DL (74-106)
--- NOTE | 2017-08-07 10:18 | RADRPT ---
EXAM DATE/TIME: 08/07/2017 10:06 [facility] COMPARISON: No previous studies available for comparison. INDICATIONS : Lower abdominal pain, nausea ORAL CONTRAST: No oral contrast ingested. RADIATION DOSE: 8.58 CTDIvol (mGy) MEDICAL HISTORY : Ulcers. Reflux, diabetes SURGICAL HISTORY : Tubal ligation. section.Hysterectomy. ENCOUNTER: Initial ACUITY: 1 week PAIN SCALE: 6/10 LOCATION: Bilateral lower quadrant TECHNIQUE: Volumetric scanning of the abdomen and pelvis was performed. Using automated exposure control and ad justment of the mA and/or kV according to patient size, radiation dose was kept as low as reasonably achievable to obtain optimal diagnostic quality images. DICOM format image data is available electro nically for review and comparison. FINDINGS: LOWER LUNGS: The visualized lower lungs are clear. LIVER: Homogeneous density without lesion. There is no dilation of the biliary tree. No calcified gallston es. SPLEEN: Normal size without lesion. PANCREAS: Within normal limits. KIDNEYS: Normal in size and shape. There is no mass, stone, or hydronephrosis. ADRENAL GLANDS: Within normal limits. VASCULAR: There is no aortic aneurysm. BOWEL/MESENTERY: The stomach, small bowel, and colon demonstrate no acute abnormality. There is no free intraperitone al air or fluid. ABDOMINAL WALL: Midline abdominal hernia containing only fat. RETROPERITONEUM: There is no lymphadenopathy. BLADDER: No wall thickening or mass. There are no inflammatory changes in the pelvis. REPRODUCTIVE: Within normal limits. INGUINAL: There is no lymphadenopathy or hernia. MUSCULOSKELETAL: Within normal limits for patient age. CONCLUSION: Multiple phleboliths in the pelvis. I cannot confirm obstructing stone. Maxime Saldivar MD FACR on August 07, 2017 at 10:14 Board Certified Radiologist. This report was verified electronically.
[2017-08-07] MEDS ORDERED: MACR100C2 PO (11:58)
[2017-08-07] MEDS ORDERED: METF1000 PO (11:59)
[2017-08-07 12:06] VITALS: BP 125/67; PULSE 91; RESP 17; O2SAT 100
[2017-08-07 13:10] VITALS: BP 132/71
== END 2017-08-07 13:32 | disposition home or self-care (01) ==
LOC: NEPC 08:17
DX: N30.00 Acute cystitis without hematuria (principal); B96.20 Unspecified Escherichia coli [E. coli] as the cause of diseases classified elsewhere; E11.65 Type 2 diabetes mellitus with hyperglycemia; Z79.4 Long term (current) use of insulin; Z91.14 Patient's other noncompliance with medication regimen
CPT/HCPCS: 74176; 80053; 81001; 83690; 84703; 85025; 87077; 87086; 87186; 96361; 96372; 96374; 96375; 99284; J1815; J2270; J2405; J7030

== ENCOUNTER 2017-09-22 07:48 | Day surgery (SDC) | payer OTHER ==
[~2017-09-22] VITALS: Ht 160 cm; Wt 119.5 kg
[~2017-09-22 07:48] MED LIST changes: +MACR100C2 PO
[2017-09-22] MEDS ORDERED: GLIM4TAB PO (08:34)
[2017-09-22] MEDS ORDERED: GABA600T PO (08:34)
[2017-09-22 08:42] VITALS: BP 157/100; PULSE 96; RESP 20; TEMP 98.5; O2SAT 97
[2017-09-22 08:57] LABS: AUTOMATED NEUTROPHIL # 7.2 TH/MM3 (1.8-7.7); BASOPHIL # 0.1 TH/MM3 (0-0.2); BASOPHIL % 0.8 % (0.0-2.0); EOSINOPHIL # 0.1 TH/MM3 (0-0.4); EOSINOPHIL % 1.1 % (0.0-4.0); HEMATOCRIT 36.4 % (35.0-46.0); LYMPH % 31.5 % (9.0-44.0); LYMPHOCYTE # 3.8 TH/MM3 (1.0-4.8); MEAN CELL VOLUME 82.1 FL (80.0-100.0); MEAN PLATELET VOLUME 8.9 FL (7.0-11.0); MONO % 5.7 % (0.0-8.0); MONOCYTE # 0.7 TH/MM3 (0-0.9); NEUT % 60.9 % (16.0-70.0); PLATELET COUNT 370 TH/MM3 (150-450); RED BLOOD COUNT 4.44 MIL/MM3 (4.00-5.30); RED CELL DISTRIBUTION WIDTH 16.1 % (11.6-17.2); WHITE BLOOD COUNT 11.9 TH/MM3 (4.0-11.0)
[2017-09-22] MEDS ORDERED: SODIUM CHLOR 0.9% 1000 ML INJ 1,000 ML IV SCH (09:00)
[2017-09-22 09:09] LABS: PROTHROMBIN TIME - PATIENT 9.9 SEC (9.8-11.6)
[2017-09-22 09:28] LABS: BICARBONATE 25.9 MEQ/L (21.0-32.0); CALCIUM 8.6 MG/DL (8.5-10.1); CREATININE 0.9 MG/DL (0.50-1.00)
--- NOTE | 2017-09-22 09:29 | PD.RAD ---
Post Procedure Progress Note Pre Procedure Diagnosis: (1) Pseudotumor cerebri Post Procedure Diagnosis: (1) Pseudotumor cerebri Procedure Date: Sep 22, 2017 Supervising Radiologist: Abisai Herzog Proceduralist/Assist: Jayda Mendoza, RT(R), Soledad Reyes, RT(R) Anesthesia: Local Plan of Activity Patient to Unit: ROPU Patient Condition: Good See PACS Report for procedural detail/treatment Abisai Herzog MD Sep 22, 2017 09:29
[2017-09-22 10:00] VITALS: BP 136/90; PULSE 95; RESP 18; TEMP 98; O2SAT 96
--- NOTE | 2017-09-22 10:10 | PD.RAD ---
Post Procedure Progress Note Pre Procedure Diagnosis: (1) Pseudotumor cerebri Post Procedure Diagnosis: (1) Pseudotumor cerebri Procedure Date: Sep 22, 2017 Supervising Radiologist: Abisai Herzog Proceduralist/Assist: Jayda Mendoza, RT(R), Soledad Reyes, RT(R) Anesthesia: Local Plan of Activity See PACS Report for procedural detail/treatment Abisai Herzog MD Sep 22, 2017 10:09
--- NOTE | 2017-09-22 10:16 | RADRPT ---
EXAM DATE/TIME: 09/22/2017 09:34 [facility] COMPARISON: LUMBAR PUNCTURE W/OPENING PRESSURES, January 08, 2015, 15:30. INDICATIONS : Patient presents with headaches and blurred vision in need of lumbar puncture. MEDICAL HISTORY : Anemia Arthritis Diabetes Bipolar Endometriosis Syncope SURGICAL HISTORY : x4 Urinary Diverticulum Fibroids Removed Uterine Ablation ENCOUNTER: Initial ACUITY: >1 year PAIN SCORE: 0/10 LUMBAR PUNCTURE TIME: 0947 hours FLUORO TIME: 0.4 minutes ACCESS LEVEL: L3-4 OPENING PRESSURE: 29.5 cm of water CLOSING PRESSURE: 21 cm of water FLUID: 8 cc of clear CSF was collected and sent to the laboratory for analysis. PROCEDURE : 1. Fluoroscopic guided lumbar puncture. 2. Recording of opening pressure. The risks, benefits and alternatives to the procedure were explained and verbal and written consent w as obtained. The site was prepped in sterile fashion. Full sterile technique was used, including ca p, mask, sterile gloves and gown and a large sterile sheet. Hand hygiene and 2% chlorhexidine and/or betadine/alcohol prep was utilized per protocol for cutaneous antisepsis. The skin and subcutaneous tissues were infiltrated with local anesthetic solution. With fluoroscopic guidance the lumbar thecal sac was punctured at the above level described above and the opening pressure was recorded. The above described fluid was removed without difficulty. The patient tolerated the procedure well and there were no complications. CONCLUSION: Uncomplicated fluoroscopically guided lumbar puncture with pressures as above. Abisai Herzog MD on September 22, 2017 at 10:13 Board Certified Radiologist. This report was verified electronically.
[2017-09-22 10:38] LABS: TOTAL PROTEIN,CSF 40.9 MG/DL (15.0-45.0)
[2017-09-22 12:00] VITALS: BP 124/71; PULSE 98; RESP 20; O2SAT 95
[2017-09-22 12:09] LABS: SUPERNATE COLOR TUBE #1 CLEAR (CLEAR)
[2017-09-22 12:10] LABS: CSF LYMPHOCYTES 100 %; CSF NEUTROPHILS 0 %; RBC TUBE #4 0 /MM3; WBC TUBE #4 5 /MM3 (0-10)
== END 2017-09-22 12:05 | disposition home or self-care (01) ==
LOC: HROP 07:48 → HRIP 07:51 → HROP 12:05
DX: G93.2 Benign intracranial hypertension (principal); R51 Headache; H53.8 Other visual disturbances; D64.9 Anemia, unspecified; E11.9 Type 2 diabetes mellitus without complications; F31.9 Bipolar disorder, unspecified; N80.9 Endometriosis, unspecified; R55 Syncope and collapse; Z79.4 Long term (current) use of insulin
CPT/HCPCS: 62270; 77003; 80048; 82945; 84157; 85025; 85610; 85730; 89051